=== PATIENT | female | born 1995 ===

== ENCOUNTER → 2022-02-28 14:51 | Outpatient (CLI) | payer OTHER, SELFPAY ==
--- NOTE | 2022-02-28 14:54 | DI.MRI.S_ITS ---
PROCEDURE: MR LUMBAR SPINE WO/W CON INDICATIONS: Polyneuropathy, unspecified TECHNIQUE: Noncontrast sagittal T1 spin echo and T2 fast spin echo, sagittal STIR, axial T1 and T2 fast spin echo through the lumbar spine. In cases with scoliosis, additional coronal T2 fast spin echo may be performed. After the administration of contrast, sagittal and axial T1 spin echo with fat saturation through the lumbar spine. COMPARISON: None. FINDINGS: Image quality: Excellent. Alignment and curvature: Bilateral L5 pars defects with approximately 3 millimeter anterolisthesis of L5 on S1. Otherwise normal lumbar vertebral body height and alignment. Marrow: Marrow is of normal overall signal. No acute vertebral body compression fractures. No suspicious marrow enhancement. Spinal cord: Conus medullaris terminates at the normal level. Visualized spinal cord demonstrates normal signal, without suspicious enhancement. Regional soft tissues: No paravertebral masses or abnormal enhancement. T12-L1: Normal appearance. L1-L2: Normal appearance. L2-L3: Normal appearance. L3-L4: Diffuse disc bulge with a superimposed central protrusion flattens indents the ventral thecal sac. No mass effect upon the traversing L4 nerve roots. No neural foraminal stenosis. Mild facet hypertrophy. L4-L5: Diffuse disc bulge with a superimposed broad-based posterior disc protrusion flattens and indents the ventral thecal sac. Annular fissure in the left paracentral and left subarticular zone adjacent to the left L5 descending nerve roots. Disc material displaces the bilateral descending L5 nerve roots, left greater than right. Questionably elevated T2 signal and enlargement of the left L5 nerve roots raises concern for impingement. No neural foraminal stenosis. Mild facet hypertrophy. L5-S1: Diffuse disc bulge with a superimposed broad-based posterior disc protrusion as well as a focal extrusion in the right paracentral and right subarticular zones where there is an annular fissure. Disc material mildly displaces the descending S1 nerve roots in both subarticular zones, right greater than left. Foraminal components of the disc bulge and facet hypertrophy combine to produce mild bilateral neural foraminal narrowing. IMPRESSION: Bilateral L5 pars defects with approximately 3 millimeter anterolisthesis of L5 on S1. Lower lumbar spine degenerative changes with potential focal nerve root impingement at L4-L5. Dictated by: Gian Sanders M.D. on 03/01/2022 at 8:40 Approved by: Gian Sanders M.D. on 03/01/2022 at 8:43
--- NOTE | 2022-02-28 14:54 | DI.MRI.S_ITS ---
PROCEDURE: MR HEAD/BRAIN WO/W CON INDICATIONS: Polyneuropathy, unspecified TECHNIQUE: Noncontrast axial T1 spin echo, axial T2 fast spin echo, sagittal and axial FLAIR, coronal T2 fast spin echo, axial gradient echo, axial diffusion and ADC through the brain. After the administration of contrast, axial and coronal and sagittal 3D VIBE or T1 spin echo with fat saturation through the brain. COMPARISON: None. FINDINGS: Image quality: Excellent. CSF Spaces: Basal cisterns are patent. No extra-axial fluid collections. Ventricles are normal in size and shape. Brain: No midline shift. No intracranial bleeds or masses. No abnormal intracranial enhancement. The brainstem appears normal. Diffusion-weighted images demonstrate no acute ischemic insults. No chronic ischemic insults. Normal intravascular flow voids are present. Skull and face: Calvarial marrow is normal in signal. Orbits appear normal. Sinuses: Maxillary sinus mucosal thickening. IMPRESSION: No significant signal or structural brain abnormality. Dictated by: Gian Sanders M.D. on 02/28/2022 at 20:18 Approved by: Gian Sanders M.D. on 03/06/2022 at 16:15
== END ==
PROVIDERS: PCP Physician Assistant; Referring Provider Physician Assistant; Visit Provider Physician Assistant
DX: G62.9 Polyneuropathy, unspecified (principal); M43.17 Spondylolisthesis, lumbosacral region; M47.816 Spondylosis without myelopathy or radiculopathy, lumbar region
CPT/HCPCS: 70553; 72158; A9579